=== PATIENT | female | born 1950 ===

== ENCOUNTER 2019-05-08 17:58 | Outpatient (REF) | payer SELFPAY ==
[2019-05-08 22:57] LABS: Anion Gap 9.1 mmol/L (3-11); BUN 20 mg/dL (7-18); CO2 26.9 mmol/L (21.0-32.0); CREATININE 0.83 mg/dL (0.55-1.02); Calcium 8.9 mg/dL (8.5-10.1); Chloride 106 mmol/L (98-107); Glucose 84 mg/dL (70-100); Potassium 3.9 mmol/L (3.5-5.1); Sodium 142 mmol/L (136-145); TSH (W/Ref FT4) 2.41 uIU/mL (0.36-3.74)
== END 2019-05-08 18:18 ==
LOC: NCHCN 17:58
PROVIDERS: Visit Provider Family Medicine
DX: I10 Essential (primary) hypertension (principal); E26.9 Hyperaldosteronism, unspecified; G60.9 Hereditary and idiopathic neuropathy, unspecified
CPT/HCPCS: 80048; 84443; 84550

== ENCOUNTER 2020-05-13 19:22 | Outpatient (REF) | payer OTHER, SELFPAY ==
[2020-05-13 21:10] LABS: HCT 41.8 % (36.0-46.0); HGB 13.3 g/dL (11.2-15.7); MCH 29.6 pg (27.0-33.0); MCHC 31.8 % (32.0-36.0); MCV 92.9 fL (80-95); MPV 9.5 fL (8.0-11.0); Platelet Count 243 10^3/uL (130-400); RDW 12.4 % (11.7-14.6); RDW-SD 42.9 fL; WBC 6.26 10^3/uL (4.4-10.8)
[2020-05-13 21:58] LABS: Anion Gap 8.1 mmol/L (3-11); BUN 22 mg/dL (7-18); CO2 26.9 mmol/L (21.0-32.0); CREATININE 0.95 mg/dL (0.55-1.02); Calcium 9.5 mg/dL (8.5-10.1); Chloride 104 mmol/L (98-107); Estimated GFR 58.33 (mL/min/1.73m2); Glucose 85 mg/dL (74-106); Potassium 4.2 mmol/L (3.5-5.1); Sodium 139 mmol/L (136-145); Vitamin B12 1448 pg/mL (193-986)
== END 2020-05-13 19:42 ==
LOC: NCHCN 19:22
PROVIDERS: Visit Provider Family Medicine
DX: D64.9 Anemia, unspecified (principal); I10 Essential (primary) hypertension; E26.9 Hyperaldosteronism, unspecified; M54.2 Cervicalgia; G60.9 Hereditary and idiopathic neuropathy, unspecified
CPT/HCPCS: 80048; 85027; 82607

== ENCOUNTER 2021-08-20 15:48 | Outpatient (REF) | payer OTHER, SELFPAY ==
[2021-08-20 15:22] LABS: BUN 16 mg/dL (7-18); CREATININE 0.9 mg/dL (0.55-1.02); Calcium 9.3 mg/dL (8.5-10.1); Calculated LDL 90 mg/dL (<100); Chloride 104 mmol/L (98-107); Cholesterol 215 mg/dL (<200); Glucose 89 mg/dL (74-106); HDL Cholesterol 102 mg/dL (40-60); Potassium 4.1 mmol/L (3.5-5.1); Sodium 141 mmol/L (136-145); Triglyceride 115 mg/dL (<150)
== END 2021-08-20 15:49 | disposition home or self-care (01) ==
LOC: NCHCN 15:48
PROVIDERS: Visit Provider Family Medicine
DX: Z00.00 Encounter for general adult medical examination without abnormal findings (principal); I10 Essential (primary) hypertension; N18.9 Chronic kidney disease, unspecified; Z13.220 Encounter for screening for lipoid disorders
CPT/HCPCS: 80048; 80061

== ENCOUNTER 2022-08-24 16:49 | Outpatient (REF) | payer OTHER, SELFPAY ==
[2022-08-24 17:23] LABS: Anion Gap 5.5 mmol/L (3-11); BUN 18 mg/dL (7-18); CO2 29.5 mmol/L (21.0-32.0); Calcium 9.7 mg/dL (8.5-10.1); Chloride 105 mmol/L (98-107); Estimated GFR 60.23 (mL/min/1.73m2); Glucose 105 mg/dL (74-106); Potassium 4.2 mmol/L (3.5-5.1); Sodium 140 mmol/L (136-145)
== END 2022-08-24 16:50 | disposition home or self-care (01) ==
LOC: NCHCN 16:49
PROVIDERS: Visit Provider Family Medicine
DX: E26.89 Other hyperaldosteronism (principal)
CPT/HCPCS: 80048

== ENCOUNTER 2023-08-18 14:56 | Outpatient (REF) | payer OTHER, SELFPAY ==
[2023-08-18 22:02] LABS: Anion Gap 8.5 mmol/L (3-11); BUN 26 mg/dL (7-18); CO2 25.5 mmol/L (21.0-32.0); CREATININE 1.2 mg/dL (0.55-1.02); Calcium 9.2 mg/dL (8.5-10.1); Chloride 104 mmol/L (98-107); Estimated GFR 48.09 (mL/min/1.73m2); Glucose 100 mg/dL (74-106); Potassium 3.8 mmol/L (3.5-5.1); Sodium 138 mmol/L (136-145)
== END 2023-08-18 14:57 | disposition home or self-care (01) ==
LOC: NCHCN 14:56
PROVIDERS: Visit Provider Family Medicine
DX: I10 Essential (primary) hypertension (principal); E26.9 Hyperaldosteronism, unspecified; R30.0 Dysuria
CPT/HCPCS: 80048; 87077; 87086; 87186

== ENCOUNTER 2023-08-30 15:09 | Outpatient (REF) | payer OTHER, SELFPAY ==
[2023-08-30 22:07] LABS: Abs Immature Grans 0.01 10^3/uL (0.0-0.06); Absolute Basophil Count 0.02 10^3/uL (0.0-0.2); Absolute Eosinophil Count 0.11 10^3/uL (0.0-0.7); Absolute Lymphocyte Count 1.34 10^3/uL (1.2-3.4); Absolute Monocyte Count 0.42 10^3/uL (0.1-0.8); Absolute Neutrophil Count 3.34 10^3/uL (1.2-6.7); Basophils % 0.4; Eosinophils % 2.1; HCT 42.1 % (36.0-46.0); HGB 13.6 g/dL (11.2-15.7); Immature Grans % 0.2; Lymphocytes % 25.6; MCH 28.6 pg (27.0-33.0); MCHC 32.3 % (32.0-36.0); MCV 88 fL (80-95); Neutrophils % 63.7; Platelet Count 236 10^3/uL (130-400); RBC 4.76 10^6/uL (3.93-5.22); RDW 12.5 % (11.7-14.6); RDW-SD 40.7 fL; WBC 5.24 10^3/uL (4.4-10.8)
[2023-08-30 22:24] LABS: Anion Gap 9.1 mmol/L (3-11); BUN 21 mg/dL (7-18); CO2 25.9 mmol/L (21.0-32.0); CREATININE 1.4 mg/dL (0.55-1.02); Calcium 9.3 mg/dL (8.5-10.1); Chloride 102 mmol/L (98-107); Estimated GFR 39.97 (mL/min/1.73m2); Glucose 88 mg/dL (74-106); Potassium 4.3 mmol/L (3.5-5.1); Sodium 137 mmol/L (136-145)
[2023-08-30 22:31] LABS: C-Reactive Protein < 0.50 mg/dL (<or=0.5)
== END 2023-08-30 15:10 | disposition home or self-care (01) ==
LOC: NCHCN 15:09
PROVIDERS: PCP Family Medicine; Visit Provider Family Medicine
DX: Z01.818 Encounter for other preprocedural examination (principal)
CPT/HCPCS: 80048; 85025; 86140

== ENCOUNTER 2024-01-13 13:39 | Outpatient (REF) | payer OTHER, SELFPAY ==
[2024-01-13 14:34] LABS: Anion Gap 6.2 mmol/L (3-11); BUN 17 mg/dL (7-18); CO2 28.8 mmol/L (21.0-32.0); Calcium 9.2 mg/dL (8.5-10.1); Chloride 106 mmol/L (98-107); Estimated GFR 59.86 (mL/min/1.73m2); Glucose 92 mg/dL (74-106); Potassium 4.1 mmol/L (3.5-5.1); Sodium 141 mmol/L (136-145)
== END 2024-01-13 13:40 | disposition home or self-care (01) ==
LOC: NCHCN 13:39
PROVIDERS: PCP Family Medicine; Visit Provider Family Medicine
DX: I10 Essential (primary) hypertension (principal)
CPT/HCPCS: 80048

== ENCOUNTER 2024-06-14 13:06 | Outpatient (REF) | payer OTHER, SELFPAY ==
[2024-06-14 16:23] LABS: Abs Immature Grans 0.02 10^3/uL (0.0-0.06); Absolute Basophil Count 0.03 10^3/uL (0.0-0.2); Absolute Eosinophil Count 0.45 10^3/uL (0.0-0.7); Absolute Lymphocyte Count 1.19 10^3/uL (1.2-3.4); Absolute Monocyte Count 0.29 10^3/uL (0.1-0.8); Absolute Neutrophil Count 2.57 10^3/uL (1.2-6.7); Basophils % 0.7 %; Eosinophils % 9.9 %; HCT 43.5 % (36.0-46.0); HGB 13.5 g/dL (11.2-15.7); Immature Grans % 0.4 %; Lymphocytes % 26.2 %; MCV 93 fL (80-95); MPV 9.6 fL (8.0-11.0); Monocytes % 6.4 %; Neutrophils % 56.4 %; Platelet Count 209 10^3/uL (130-400); RBC 4.66 10^6/uL (3.93-5.22); RDW 13.3 % (11.7-14.6); RDW-SD 45.4 fL; WBC 4.55 10^3/uL (4.4-10.8)
[2024-06-14 16:54] LABS: ALT 29 U/L (14-59); AST 20 U/L (15-37); Albumin 3.6 g/dL (3.4-5.0); Alkaline Phosphatase 73 U/L (46-116); Anion Gap 7.9 mmol/L (3-11); BUN 16 mg/dL (7-18); Bilirubin, Total 0.39 mg/dL (0.2-1.0); CO2 30.1 mmol/L (21.0-32.0); Calcium 9.3 mg/dL (8.5-10.1); Chloride 107 mmol/L (98-107); Estimated GFR 59.49 (mL/min/1.73m2); Glucose 79 mg/dL (74-106); Potassium 3.9 mmol/L (3.5-5.1); Sodium 145 mmol/L (136-145); TSH 2.53 uIU/mL (0.36-3.74); Total Protein 7.7 g/dL (6.4-8.2)
[2024-06-15 12:17] LABS: IgA 270 mg/dL (85-499); Interpretation (See Note); Tissue Transglutaminase IgA <4.0 CU (<20.0)
== END 2024-06-14 13:07 | disposition home or self-care (01) ==
LOC: NCHCN 13:06
PROVIDERS: PCP Family Medicine; Visit Provider Family Medicine
DX: K52.9 Noninfective gastroenteritis and colitis, unspecified (principal)
CPT/HCPCS: 80053; 82784; 83516; 84443; 85025

== ENCOUNTER 2025-01-18 15:07 | Outpatient (REF) | payer MEDICARE, SELFPAY ==
[2025-01-18 14:21] LABS: Abs Immature Grans 0.01 10^3/uL (0.0-0.06); Absolute Basophil Count 0.03 10^3/uL (0.0-0.2); Absolute Eosinophil Count 0.14 10^3/uL (0.0-0.7); Absolute Lymphocyte Count 1.85 10^3/uL (1.2-3.4); Absolute Monocyte Count 0.45 10^3/uL (0.1-0.8); Absolute Neutrophil Count 2.27 10^3/uL (1.2-6.7); Basophils % 0.6 %; Eosinophils % 2.9 %; HCT 40.9 % (36.0-46.0); HGB 13.1 g/dL (11.2-15.7); Immature Grans % 0.2 %; Lymphocytes % 38.9 %; MCV 91 fL (80-95); MPV 9.2 fL (8.0-11.0); Monocytes % 9.5 %; Neutrophils % 47.9 %; Platelet Count 214 10^3/uL (130-400); RBC 4.52 10^6/uL (3.93-5.22); RDW 12.8 % (11.7-14.6); RDW-SD 42.2 fL; WBC 4.75 10^3/uL (4.4-10.8)
[2025-01-18 14:41] LABS: Anion Gap 8.3 mmol/L (3-11); BUN 18 mg/dL (7-18); CO2 28.7 mmol/L (21.0-32.0); CREATININE 0.8 mg/dL (0.55-1.02); Calcium 9.4 mg/dL (8.5-10.1); Chloride 104 mmol/L (98-107); Estimated GFR 77.75 (mL/min/1.73m2); Glucose 96 mg/dL (74-106); Potassium 4.1 mmol/L (3.5-5.1); Sodium 141 mmol/L (136-145)
[2025-01-18 14:43] LABS: C-Reactive Protein < 0.50 mg/dL (<or=0.5)
== END 2025-01-18 15:08 | disposition home or self-care (01) ==
LOC: NCHCN 15:07
PROVIDERS: PCP Family Medicine; Visit Provider Family Medicine
DX: I10 Essential (primary) hypertension (principal); K11.8 Other diseases of salivary glands; K11.5 Sialolithiasis
CPT/HCPCS: 80048; 85025; 86140

== ENCOUNTER 2025-03-06 15:04 | Outpatient (REF) | payer MEDICARE, SELFPAY ==
--- NOTE | 2025-03-06 07:52 | SKI_PTH ---
PATIENT: Blaire Subramanian LOC: [facility] U#:[id number] AGE/SX: 75/F ROOM: RE03/06/[address]: Daryl Sanches MD : 1950 BED: DIS: 03/06/2025 SPEC #: [id number] RECD: 03/06/25 15:58 STATUS: ELANA REKelly #: [id number] BONILLA: 03/06/25 07:[address]: Daryl Sanches DEPT: Surgical Specimen RECD BY: Sophia Keita ENTERED: 03/06/25 15:59 SP TYPE: MARILYN CARTER DR: Ju Colon Tissues: 1 - SKIN BIOPSY(SHAVE/PUNCH) Procedures: SPECIAL STAIN 2 GROSS AND MICRO LEVEL 4 IMMUNOPEROXIDASE STAIN Single Probe In Situ Hybridization Comments: [id number]
== END 2025-03-06 15:05 | disposition home or self-care (01) ==
LOC: LBN 15:04
PROVIDERS: PCP Family Medicine; Visit Provider Otolaryngology
DX: K11.9 Disease of salivary gland, unspecified (principal)
CPT/HCPCS: 88305; 88368; 88313; 88361

== ENCOUNTER 2025-03-21 12:52 | Outpatient (REF) | payer MEDICARE, SELFPAY ==
--- NOTE | 2025-03-21 08:20 | SKI_PTH ---
PATIENT: Blaire Subramanian LOC: [facility] U#:[id number] AGE/SX: 75/F ROOM: RE03/21/[address]: Daryl Sanches MD : 1950 BED: DIS: 03/21/2025 SPEC #: [id number] RECD: 03/21/25 13:00 STATUS: ELANA REKelly #: [id number] BONILLA: 03/21/25 08:[address]: Daryl Sanches DEPT: Surgical Specimen RECD BY: Sophia Keita ENTERED: 03/21/25 13:01 SP TYPE: MARILYN CARTER DR: Ju Colon Tissues: 1 - SKIN BIOPSY(SHAVE/PUNCH) 2 - FLOW CYTOMETRY NODE/TISSUE Procedures: IMMUNOPEROXIDASE STAIN SKIN LEVEL 4 MIB-1 IHC Semi Quantative % FLOW CYTOMETRY LYMPHOMA PNL Comments: [id number] (FLOW CYTOMETRY [id number])
== END 2025-03-21 12:53 | disposition home or self-care (01) ==
LOC: LBN 12:52
PROVIDERS: PCP Family Medicine; Visit Provider Otolaryngology
DX: L98.9 Disorder of the skin and subcutaneous tissue, unspecified (principal)
CPT/HCPCS: 88360; 88184; 88185; 88305; 88361

== ENCOUNTER 2025-07-17 07:45 | Outpatient (RCR) | payer MEDICARE, SELFPAY ==
[2025-06-26] MEDS: Normal Saline Flush 10 ML SYR IVP (08:00)
[2025-06-26 08:24] LABS: Abs Immature Grans 0.06 10^3/uL (0.0-0.06); HCT 36.8 % (36.0-46.0); HGB 11.9 g/dL (11.2-15.7); Immature Grans % 0.9 %; MCH 28.7 pg (27.0-33.0); MCHC 32.3 % (32.0-36.0); MCV 89 fL (80-95); MPV 8.4 fL (8.0-11.0); Platelet Count 469 10^3/uL (130-400); RBC 4.14 10^6/uL (3.93-5.22); RDW 14.2 % (11.7-14.6); RDW-SD 45.1 fL; WBC 6.80 10^3/uL (4.4-10.8)
[2025-06-26 08:53] LABS: LDH 178 U/L (120-246)
[2025-06-26 08:54] LABS: ALT 26 U/L (10-49); AST 21 U/L (<34); Albumin 4.0 g/dL (3.2-5.0); Alkaline Phosphatase 73 U/L (46-116); Anion Gap 6.3 mmol/L (3-11); BUN 22 mg/dL (9-23); Bilirubin, Total 0.40 mg/dL (0.2-1.2); CO2 27.7 mmol/L (20.0-31.0); Calcium 9.4 mg/dL (8.3-10.6); Chloride 107 mmol/L (98-107); Glucose 88 mg/dL (74-106); Potassium 3.8 mmol/L (3.5-5.1); Sodium 141 mmol/L (136-145); Total Protein 6.9 g/dL (5.7-8.2)
[2025-07-17] MEDS: Normal Saline Flush 10 ML SYR IVP (07:50)
[2025-07-17 08:27] LABS: Abs Immature Grans 0.02 10^3/uL (0.0-0.06); HCT 34.5 % (36.0-46.0); HGB 10.8 g/dL (11.2-15.7); Immature Grans % 0.3 %; MCH 28.5 pg (27.0-33.0); MCHC 31.3 % (32.0-36.0); MCV 91 fL (80-95); MPV 8.2 fL (8.0-11.0); Platelet Count 327 10^3/uL (130-400); RBC 3.79 10^6/uL (3.93-5.22); RDW 16.1 % (11.7-14.6); RDW-SD 53.2 fL; WBC 5.97 10^3/uL (4.4-10.8)
[2025-07-17 08:45] LABS: LDH 166 U/L (120-246)
[2025-07-17 08:46] LABS: ALT 40 U/L (10-49); AST 29 U/L (<34); Albumin 4.0 g/dL (3.2-5.0); Alkaline Phosphatase 80 U/L (46-116); Anion Gap 6.9 mmol/L (3-11); BUN 26 mg/dL (9-23); Bilirubin, Total 0.3 mg/dL (0.2-1.2); CO2 28.1 mmol/L (20.0-31.0); Calcium 9.3 mg/dL (8.3-10.6); Chloride 108 mmol/L (98-107); Glucose 96 mg/dL (74-106); Potassium 4.0 mmol/L (3.5-5.1); Sodium 143 mmol/L (136-145); Total Protein 6.7 g/dL (5.7-8.2)
== END 2025-07-24 23:59 | disposition home or self-care (01) ==
LOC: INF 07:45
PROVIDERS: PCP Family Medicine; Visit Provider Internal Medicine Hematology & Oncology
DX: C85.80 Other specified types of non-Hodgkin lymphoma, unspecified site (principal); Z45.2 Encounter for adjustment and management of vascular access device
CPT/HCPCS: 36591; 80053; 83615; 85025